=== PATIENT | male | born 1960 | race Caucasian/White ===

== ENCOUNTER → 2016-11-21 | Outpatient (CLI) | payer BC | END | disposition home or self-care (01) | LOC: LAB.O 12:02 | DX: G61.9 Inflammatory polyneuropathy, unspecified (principal); R20.0 Anesthesia of skin; M62.81 Muscle weakness (generalized); R27.0 Ataxia, unspecified ==

== ENCOUNTER → 2018-11-10 | Outpatient (CLI) | payer BC | LOC: LAB.O 08:57 | DX: G61.81 Chronic inflammatory demyelinating polyneuritis (principal); G62.9 Polyneuropathy, unspecified; R19.8 Other specified symptoms and signs involving the digestive system and abdomen ==

== ENCOUNTER 2019-08-16 05:45 | Day surgery (SDC) | payer BC ==
[2019-08-16] MEDS ORDERED: LACTATED RINGERS 1,000 ML ONE (07:06)
[2019-08-16] MEDS: BUPIVACAINE 0.5% W/EPI 30 ML VIAL INJ ONE (09:15)
[2019-08-16] MEDS: BACITRACIN 0.9 GM UD PCKT ONE (09:24)
[2019-08-16 10:58] VITALS: O2SAT 97
[2019-08-16 11:00] VITALS: BP 128/68; TEMP 98
--- NOTE | 2019-09-09 14:37 | OP ---
DATE OF PROCEDURE: 08/16/19 PREOPERATIVE DIAGNOSIS: 1. Subcutaneous scalp lesions times 2. POSTOPERATIVE DIAGNOSIS: 1. Subcutaneous scalp lesions times 2. PROCEDURE: 1. Excision of subcutaneous scalp lesions, #1 2 cm, #2 1.5 cm. SURGEON: Bo Torres MD. ANESTHESIA: Local. FINDINGS: They were moderately large subcutaneous lesions with fine, smooth, shiny capsule consistent with likely inclusion cysts. COMPLICATIONS: None. ESTIMATED BLOOD LOSS: Minimal. CONDITION: Stable. PLAN: Discharge. INDICATION: As stated. PROCEDURE: The patient was brought to the Operating Suite. The scalp was prepped and draped in sterile fashion. Local anesthesia was placed over the lesions. Incision was made and the subcutaneous tissue dissected out to be able to dissect around the lesion completely down to the underlying tissue and remove it completely. There was minimal bleeding. Some cautery was used with a fine cautery tip. It was closed with niraj. The second lesion more anterior on the scalp/forehead was removed in a similar fashion. There was no evidence of complications. He was then taken to the Recovery Room in stable condition to be discharged. #[id number] MTDD
== END 2019-08-16 10:06 | disposition home or self-care (01) ==
LOC: AMB 05:45
PROVIDERS: ATTEND Surgery
DX: L72.12 Trichodermal cyst (principal); L72.11 Pilar cyst; I10 Essential (primary) hypertension; Z88.8 Allergy status to other drugs, medicaments and biological substances; Z87.442 Personal history of urinary calculi; Z79.899 Other long term (current) drug therapy
CPT/HCPCS: 11422; J3490; J7120